=== PATIENT | female | born 1980 | race Caucasian/White ===

== ENCOUNTER 2019-10-20 17:56 | Outpatient (REF) | payer BC, SELFPAY ==
[2019-10-20 19:42] LABS: Calculated LDL 107 mg/dL (<100); Cholesterol 177 mg/dL (<200); HDL Cholesterol 41 mg/dL (40-60); Triglyceride 146 mg/dL (<150)
[2019-10-20 19:49] LABS: Hemoglobin A1C 5.1 % (3.8-5.6)
== END 2019-10-20 18:16 ==
LOC: NCHCN 17:56
PROVIDERS: PCP Nurse Practitioner; Visit Provider Nurse Practitioner
DX: Z13.6 Encounter for screening for cardiovascular disorders (principal); Z13.1 Encounter for screening for diabetes mellitus
CPT/HCPCS: 80061; 83036

== ENCOUNTER 2019-11-05 16:48 | Outpatient (REF) | payer BC, SELFPAY ==
--- NOTE | 2019-11-05 16:20 | PAPFT_PTH ---
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
== END 2019-11-05 17:08 ==
LOC: LBN 16:48
PROVIDERS: PCP Nurse Practitioner; Visit Provider Nurse Practitioner
DX: Z12.4 Encounter for screening for malignant neoplasm of cervix (principal); Z11.51 Encounter for screening for human papillomavirus (HPV)
CPT/HCPCS: 88142; 87624

== ENCOUNTER 2020-05-25 03:09 | Outpatient (CLI) | payer BC, SELFPAY ==
--- NOTE | 2020-05-25 07:45 | DI.US_ITS ---
EXAM: US BREAST LT COMPLETE CLINICAL HISTORY: tender lump left lateral breast,N63.0. TECHNIQUE: Limited ultrasound of the left breast was performed. COMPARISON: Prior outside mammograms were reviewed. Today's mammogram also reviewed. FINDINGS: See combined report. IMPRESSION: See combined report BI-RADS Category 2 - Benign Findings Breast Density - Category C - Heterogeneously dense Breast density Category C or D implies that the patient has dense breast tissue. Dense breast tissue can make it harder to find cancer on a mammogram. Dense breast tissue is also associated with an incr eased risk of breast cancer. This information about the result of the mammogram report was provided to the patient to raise their awareness. Use this report when you speak with the patient about their risks for breast cancer, which includes their family history. At that time, you may recommend additional screening tests (Ultrasoun d or MRI) as these tests may add significant information. A negative radiographic report should not delay biopsy if a dominant or clinically suspicious mass is present. Up to ten percent of cancers are not identified on mammography. A negative report may reinforce clinical impression. Adenosis and dense breasts may obscure an underlying neoplasm. False positive reports average 6 to 10%. Patient will receive a letter notifying them of these results.
--- NOTE | 2020-05-25 13:49 | DI.MAMMO_ITS ---
EXAM: MG MAMMO DIAGNOSTIC UNI CLINICAL HISTORY: tender lump left lateral breast,N63.0. TECHNIQUE: Both CC and MLO views of the left breast performed following placement of skin marker ove r the area of concern-clinical palpable area. This was apparently also investigated October 2019 at [facility]. Cysts were discovered at that time. The patient feels that these have further increased in size and are now uncomfortable. COMPARISON: Prior outside mammogram and ultrasound October 2019 reviewed. FINDINGS: Mammogram reveals multiple well-defined noncalcified nodules. The largest is 1 which corresponds to her palpable finding and measures approximately 3.7 x 2.8 centimetres and appears bilobed. There are no spiculated masses nor malignant-appearing microcalcification groups in left breast. Left breast ultrasound performed flow on today's mammogram reveals multiple cysts and microcysts whic h are found in all 4 quadrants. The largest of these corresponds to what she is feeling at the 2 o'c lock position and measures 4.2 x 2.8 centimetres and has similar appearance to the mammographic nodul e. There are no solid mural components. No hemorrhagic cysts. No solid lesions in all 4 quadrants. IMPRESSION: Multiple left breast cysts ranging in size from microcysts to the largest which is described above in the upper outer quadrant 2 o'clock position measuring 42 x 28 millimeters in corresponding to her pa lpable uncomfortable finding. I discussed with her the findings and that she should discuss the poss ibility of ultrasound-guided fine-needle aspiration of the uncomfortable palpable large cyst. Most importantly, there are no solid lesions. BI-RADS Category 2 - Benign Findings..... Breast Density - Category C - Heterogeneously dense Breast density Category C or D implies that the patient has dense breast tissue. Dense breast tissue can make it harder to find cancer on a mammogram. Dense breast tissue is also associated with an incr eased risk of breast cancer. This information about the result of the mammogram report was provided to the patient to raise their awareness. Use this report when you speak with the patient about their risks for breast cancer, which includes their family history. At that time, you may recommend additional screening tests (Ultrasoun d or MRI) as these tests may add significant information. A negative radiographic report should not delay biopsy if a dominant or clinically suspicious mass is present. Up to ten percent of cancers are not identified on mammography. A negative report may reinforce clinical impression. Adenosis and dense breasts may obscure an underlying neoplasm. False positive reports average 6 to 10%. Patient will receive a letter notifying them of these results.
== END 2020-05-25 03:29 ==
PROVIDERS: PCP Nurse Practitioner; Visit Provider Nurse Practitioner
DX: N60.02 Solitary cyst of left breast (principal)
CPT/HCPCS: 76642; 77061; 77065; G0279

== ENCOUNTER 2020-06-24 11:23 | Outpatient (REF) | payer BC, SELFPAY ==
--- NOTE | 2020-06-24 10:30 | PAPNONF_PTH ---
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
== END 2020-06-24 11:24 | disposition home or self-care (01) ==
LOC: LBN 11:23
PROVIDERS: PCP Nurse Practitioner; Visit Provider Surgery
DX: N60.02 Solitary cyst of left breast (principal)
CPT/HCPCS: 88104

== ENCOUNTER 2021-07-29 17:10 | Outpatient (REF) | payer BC, SELFPAY ==
[2021-07-31 11:31] LABS: COVID-19 RT-PCR UVMMC Result Negative (Negative)
== END 2021-07-29 17:11 | disposition home or self-care (01) ==
LOC: LBN 17:10
PROVIDERS: PCP Nurse Practitioner; Visit Provider Nurse Practitioner Family
DX: J02.9 Acute pharyngitis, unspecified (principal); R53.83 Other fatigue; Z20.822 Contact with and (suspected) exposure to COVID-19
CPT/HCPCS: U0003; 87070

== ENCOUNTER 2022-05-24 02:57 | Outpatient (CLI) | payer BC, SELFPAY ==
--- NOTE | 2022-05-24 08:00 | DI.MAMMO_ITS ---
Exam(s) MAMMO SCREENING EXAM: MAMMO SCREENING CLINICAL HISTORY: screening,Z12.39 TECHNIQUE: Bilateral full field digital CC and MLO mammographic images were obtained with 3D tomosyn thesis and utilizing computer aided detection (CAD). COMPARISON: Available for comparison. FINDINGS: Masses/Architectural Distortion: There again seen multiple well-circumscribed nodules in both breasts . No suspicious masses or microcalcifications are seen. Microcalcifications: No suspicious pleomorphic-type are seen. Skin Thickening/Nipple Retraction: None. IMPRESSION: 1. No significant interval change with no specific features of malignancy noted. 2. Unless there is more urgent need, screening mammography is recommended, as per [employer] guidelines. BI-RADS Category 2 - Benign Findings Breast Density - Category C - Heterogeneously dense Breast density category C or D implies that the patient has dense breast tissue. Dense breast tissue is very common and is not abnormal but dense breast tissue can make it harder to find cancer on a ma mmogram. Also, dense breast tissue may increase their breast cancer risk. This information about the result of the mammogram report was provided to the patient to raise their awareness. Use this report when you speak with the patient about their risks for breast cancer, which includes their family hist ory. At that time, you may recommend for more screening tests (Ultrasound or MRI) as they might be us eful based on their risk. A negative radiographic report should not delay biopsy if a dominant or clinically suspicious mass is present. Up to ten percent of cancers are not identified on mammography. A negative report may reinforce clinical impression. Adenosis and dense breasts may obscure an underlying neoplasm. False positive reports average 6 to 10%. Patient will receive a letter notifying them of these results.
== END 2022-05-24 03:17 ==
LOC: DI 02:57
PROVIDERS: PCP Nurse Practitioner Family; Visit Provider Nurse Practitioner Family
DX: Z12.31 Encounter for screening mammogram for malignant neoplasm of breast (principal); R92.8 Other abnormal and inconclusive findings on diagnostic imaging of breast
CPT/HCPCS: 77063; 77067

== ENCOUNTER 2023-05-09 00:53 | Outpatient (CLI) | payer BC, SELFPAY ==
[2023-05-09 07:55] LABS: Abs Immature Grans 0.03 10^3/uL (0.0-0.06); Absolute Basophil Count 0.06 10^3/uL (0.0-0.2); Absolute Eosinophil Count 0.31 10^3/uL (0.0-0.7); Absolute Lymphocyte Count 3.18 10^3/uL (1.2-3.4); Absolute Monocyte Count 0.63 10^3/uL (0.1-0.8); Absolute Neutrophil Count 4.77 10^3/uL (1.2-6.7); Basophils % 0.7; Eosinophils % 3.5; HCT 46.3 % (36.0-46.0); HGB 15.6 g/dL (11.2-15.7); Immature Grans % 0.3; Lymphocytes % 35.4; MCH 31.9 pg (27.0-33.0); MCHC 33.7 % (32.0-36.0); MCV 95 fL (80-95); MPV 9.5 fL (8.0-11.0); Neutrophils % 53.1; Platelet Count 298 10^3/uL (130-400); RBC 4.89 10^6/uL (3.93-5.22); RDW 12.4 % (11.7-14.6); RDW-SD 43.1 fL; WBC 8.98 10^3/uL (4.4-10.8)
[2023-05-09 08:42] LABS: ALT 31 U/L (14-59); AST 20 U/L (15-37); Albumin 3.6 g/dL (3.4-5.0); Alkaline Phosphatase 81 U/L (46-116); Anion Gap 7.9 mmol/L (3-11); BUN 12 mg/dL (7-18); Bilirubin, Total 0.4 mg/dL (0.2-1.0); CO2 28.1 mmol/L (21.0-32.0); CREATININE 1.1 mg/dL (0.55-1.02); Calcium 8.8 mg/dL (8.5-10.1); Calculated LDL 120 mg/dL (<100); Chloride 104 mmol/L (98-107); Cholesterol 190 mg/dL (<200); Estimated GFR 63.94 (mL/min/1.73m2); Glucose 97 mg/dL (74-106); HDL Cholesterol 47 mg/dL (40-60); Potassium 3.8 mmol/L (3.5-5.1); Sodium 140 mmol/L (136-145); TSH (W/Ref FT4) 2.47 uIU/mL (0.36-3.74); Total Protein 7.1 g/dL (6.4-8.2); Triglyceride 119 mg/dL (<150)
[2023-05-09 18:37] LABS: Hepatitis C Ab w Rflx HCV PCR Negative (Negative)
[2023-05-09 18:39] LABS: HIV-1/2 Ag & Ab Screen Negative (Negative)
== END 2023-05-09 00:54 | disposition home or self-care (01) ==
PROVIDERS: PCP Nurse Practitioner Family; Visit Provider Nurse Practitioner Family
DX: R53.83 Other fatigue (principal); Z11.59 Encounter for screening for other viral diseases; R63.5 Abnormal weight gain; Z11.4 Encounter for screening for human immunodeficiency virus [HIV]; Z13.220 Encounter for screening for lipoid disorders
CPT/HCPCS: 36415; 80053; 80061; 86803; 87389; 84443; 85025

== ENCOUNTER → 2023-05-27 04:42 | Outpatient (CLI) | payer BC, SELFPAY ==
--- NOTE | 2023-05-27 08:00 | DI.MAMMO_ITS ---
Exam(s) MAMMO SCREENING EXAM: MAMMO SCREENING CLINICAL HISTORY: screening,z12.39 TECHNIQUE: Mammograms were interpreted according to the usual protocol including computer analysis w Spindle CAD system, tomosynthesis and C-view imaging. COMPARISON: 2019 through 2022 FINDINGS: The breasts are composed of heterogeneously dense fibroglandular densities, Breast Density category C . No suspicious masses or suspicious microcalcifications are seen. Multiple circumscribed areas of nod ularity are again noted in both breasts, right greater than left. Cysts were noted on prior ultrasou nds. No skin thickening or abnormal axillary lymph nodes are seen. IMPRESSION: BI-RADS Category 2 - Negative Mammogram with benign findings. Yearly screening mammography is recomm ended. Breast Density Category C, heterogeneously Dense. The mammogram demonstrates the patient's breast tissue is dense. Dense breast tissue is very common a nd is not abnormal but dense breast tissue can make it harder to find cancer on a mammogram. Also, de nse breast tissue may increase breast cancer risk. This information about the result of the mammogram report was provided to the patient to raise their awareness. Use this report when you speak with the patient about their risks for breast cancer, which includes their family history. At that time, you may recommend additional screening tests (Ultrasound or MRI) as they might be useful based on their r isk. A negative radiographic report should not delay biopsy if a dominant or clinically suspicious mass is present. Up to ten percent of cancers are not identified on mammography. A negative report may reinforce clinical impression. Adenosis and dense breasts may obscure an underlying neoplasm. False positive reports average 6 to 10%.
== END ==
PROVIDERS: PCP Nurse Practitioner Family; Visit Provider Nurse Practitioner Family
DX: Z12.31 Encounter for screening mammogram for malignant neoplasm of breast (principal); R92.323 Mammographic fibroglandular density, bilateral breasts
CPT/HCPCS: 77063; 77067

== ENCOUNTER 2024-05-11 04:08 | Emergency (ER) | payer BC, SELFPAY ==
[2024-05-11 04:10] VITALS: BP 172/107; PULSE 94; RESP 18; TEMP 37; O2SAT 99
--- NOTE | 2024-05-11 04:10 | W.ED.GENAD ---
Discharge Plan Disposition Patient Disposition: Home Condition: Stable Discharge Details Clinical Impression: Angioedema of lips Primary Care Provider: Martin Van ED Provider: Drew Eubanks Meds and New Rx's Prescriptions: Continued acyclovir 200 mg capsule 200 mg PO BID Qty: 180 4RF Rx Instructions: increase to 5 x daily for outbreaks epinephrine 0.3 mg/0.3 mL auto-injector 0.3 mg IM ONCE Qty: 1 0RF acetaminophen 500 mg Tablet 500 mg PO Q6H PRN ibuprofen 200 mg Tablet 200 mg PO Q6H PRN Discontinued bupropion HCl 100 mg tablet 100 mg PO BID Qty: 60 0RF Discharge Instructions Additional Instructions: You were seen for swelling of the upper lip which could potentially be related to the new medication though this is not a well-known side effect of this medication. Would discontinue use of the medication at this time until you can discuss with the prescriber. You may take diphenhydramine over the next day or 2 if needed. You should return to the ED if you have increased swelling, difficulty breathing, syncope, other concerns. HPI General Mode of arrival: ambulatory. Date/Time Provider Initiated Documentation: 05/11/24 04:10. Limitations to Documentation: no limitations. Information obtained by: patient and RN notes reviewed. HPI Narrative: Patient presents to ED with upper lip swelling. Patient does have history of allergies and anaphylaxis. She has not ate anything that she is knowingly allergic to. She did start a new medication, bupropion, taking her first dose at 8 AM yesterday morning. She now has developed some swelling to her upper lip. She denies any throat swelling or tightness. She denies difficulty breathing. She denies GI symptoms. She denies pruritus or rash. She did take 25 mg of diphenhydramine orally. She was concerned that she would continue to swell and came to ED. Related Data Home Medications ?Medication ?Instructions ?Recorded ?Confirmed acetaminophen 500 mg tablet 500 mg PO Q6H PRN 10/01/19 05/11/24 ibuprofen 200 mg tablet 200 mg PO Q6H PRN 10/01/19 05/11/24 acyclovir 200 mg capsule 200 mg PO BID 0 days #180 caps 05/04/24 05/11/24 epinephrine 0.3 mg/0.3 mL 0.3 mg (0.3 mL) IM ONCE #1 pen 05/04/24 05/11/24 injection, auto-injector Previous Rx's ?Medication ?Instructions ?Recorded acyclovir 200 mg capsule 200 mg PO BID 0 days #180 caps 05/04/24 epinephrine 0.3 mg/0.3 mL 0.3 mg (0.3 mL) IM ONCE #1 pen 05/04/24 injection, auto-injector Allergies Allergy/AdvReac Type Severity Reaction Status Date / Time erythromycin base Allergy Intermediate hives Verified 05/11/24 04:16 peanut odor Allergy Severe tongue Uncoded 05/11/24 04:16 swells Review of Systems Narrative: Per HPI Exam Narrative Exam Narrative: Const: WDWN female in NAD. VS per triage. HEENT: NC/AT. Edema to the upper lip which is fairly symmetric. Lower lip normal. Tongue normal. Oropharynx and posterior oropharynx normal. Neck: Supple. Trachea midline. No stridor Lungs: Normal respiratory effort. Lungs are clear. Cor: RRR without murmur. Good radial pulses. Neuro: A+O x 3. Normal speech, mentation, gait. Cranial nerves II - XII grossly intact. No gross motor or sensory deficit. Skin: No hives/rash. Medical Decision Making Patient presenting to ED with edema to the upper lip which is symmetric. Only new substance is bupropion which is not known for causing angioedema. She otherwise is asymptomatic. Will give another 25 mg of oral diphenhydramine, 8 mg oral Decadron and observe for progression. Patient observed for almost 2 hours. She has had mild improvement in the lip swelling. She has had no new symptoms. Feel the patient is safe for discharge at this time. Will hold the Wellbutrin and have her discuss with prescriber. Return precautions provided. [facility] All Active Problems (Updated 05/11/24 @ 06:00 by Drew Eubanks MD) Angioedema of lips (Acute) Low back pain radiating to both legs (Acute) Weight gain (Acute) Fatigue (Acute) Alcohol use disorder, mild, abuse (Acute) Above recommended guidelines. Tobacco use disorder (Acute) 2-10 cigs a day (social) Recurrent cold sores (Acute) Medical History Anxiety and depression Surgical History S/P fine needle aspiration (~06/24/20) Left Breast cyst-A. Apurva Ligation of fallopian tube Appendectomy Family History Mother Hypertension Father Essential hypertension Hypertension Sister No problems noted. Brother Asthma Paternal Grandfather , 73 Heart disease Maternal Grandmother , 93 Diabetes Essential hypertension Heart disease Hyperlipidemia Paternal Grandmother , 91 No problems noted. Sister Asthma Sister , 35 No problems noted. Sister No problems noted. Sister Asthma Sister No problems noted. Sister No problems noted. Sister Asthma Brother No problems noted. Son No problems noted. Son No problems noted. Social History Smoking/Tobacco Use Status: Current every day Tobacco Type: cigarettes Tobacco: How many years used: 25 Quit status: considering quitting Second Hand Exposure: Yes Smoking risk assessment performed?: Yes Alcohol Intake: current Alcohol Intake frequency: a few times a week Alcohol type: beer Drug use: Never Substance use type: does not use Caregiver/Support person: No Household members: spouse and children Housing: house Number of Children: 2 Do you need help understanding health information?: Never current occupation: [employer] Pets and animals: Yes Pets and animals: dog(s) Sexually active: Yes Do you think of yourself as: straight/heterosexual Current gender identity: female What is your relationship status?: How often do you talk on the phone with friends or family?: three or more times per week How often do you get together with friends or relatives?: twice per week How often do you attend adventist or presybeterian services?: decline to answer Do you belong to any clubs or organized social groups?: no Panel score (0-1 are the most socially isolated patients): 2 What type of physical activity do you participate in: walking and bicycling Duration: 30-45 minutes/day Frequency: 3-4 times per week Ratna/Sabianism: None Special ranta needs: No Seatbelt use: always Helmet use: Yes Helmet use: always Drive intox or ride w/intox class a regional truck driver: No
[2024-05-11] MEDS: diphenhydrAMINE 25 MG CAP PO (04:22)
[2024-05-11] MEDS: Dexamethasone 4 MG TAB 8 MG PO (04:22)
[2024-05-11 05:22] VITALS: BP 160/100; PULSE 90; RESP 14; O2SAT 98
[2024-05-11 05:25] VITALS: RESP 14; O2SAT 98
[2024-05-11 06:10] VITALS: BP 156/90; PULSE 82; RESP 14; O2SAT 98
== END 2024-05-11 06:07 | disposition home or self-care (01) ==
PROVIDERS: Emergency Provider Emergency Medicine; PCP Nurse Practitioner Family
DX: T78.3XXA Angioneurotic edema, initial encounter (principal); F17.210 Nicotine dependence, cigarettes, uncomplicated
CPT/HCPCS: 99283; J8540

== ENCOUNTER 2024-05-29 00:40 | Outpatient (CLI) | payer BC, SELFPAY ==
--- NOTE | 2024-05-29 08:22 | DI.MAMMO_ITS ---
Exam(s) MAMMO SCREENING EXAM: MAMMO SCREENING CLINICAL HISTORY: screening,z12.39 TECHNIQUE: Mammograms were interpreted according to the usual protocol including computer analysis w [employer] CAD system, tomosynthesis and C-view imaging. COMPARISON: 2019 through 2023 FINDINGS: The breasts are composed of heterogeneously dense fibroglandular densities, Breast Density category C . No suspicious masses or suspicious microcalcifications are seen. Decreased prominence of previously noted areas of nodularity which are free previously found to represent cysts. Scattered benign calci fications also present. No skin thickening or abnormal axillary lymph nodes are seen. There has been no significant change from prior exams. IMPRESSION: BI-RADS Category 2 - Benign Findings yearly screening mammography is recommended. Breast Density Category C, heterogeneously Dense. The mammogram demonstrates the patient's breast tissue is dense. Dense breast tissue is very common a nd is not abnormal but dense breast tissue can make it harder to find cancer on a mammogram. Also, de nse breast tissue may increase breast cancer risk. This information about the result of the mammogram report was provided to the patient to raise their awareness. Use this report when you speak with the patient about their risks for breast cancer, which includes their family history. At that time, you may recommend additional screening tests (Ultrasound or MRI) as they might be useful based on their r isk. A negative radiographic report should not delay biopsy if a dominant or clinically suspicious mass is present. Up to ten percent of cancers are not identified on mammography. A negative report may reinforce clinical impression. Adenosis and dense breasts may obscure an underlying neoplasm. False positive reports average 6 to 10%.
== END 2024-05-29 01:00 ==
LOC: DI 00:40
PROVIDERS: PCP Nurse Practitioner Family; Visit Provider Nurse Practitioner Family
DX: Z12.31 Encounter for screening mammogram for malignant neoplasm of breast (principal); R92.333 Mammographic heterogeneous density, bilateral breasts; D24.9 Benign neoplasm of unspecified breast
CPT/HCPCS: 77063; 77067